=== PATIENT | male | born 1965 | race Two or more races ===

== ENCOUNTER 2017-06-21 08:30 | Emergency (ER) | payer OTHER ==
[~2017-06-21] VITALS: Ht 167.6 cm; Wt 72.6 kg
[~2017-06-21 08:30] MED LIST: ALPRAZOLAM0.25 MG ORAL; AMLODIPINE BESY10 MG PO; CLINDAMYCIN HC300 MG ORAL; DSS100 MG PO; FLOMAX0.4 MG PO; HYDRALAZINE HCL25 M1 PO; KEFLEX500 M1 GT; NKM; NORCO 5-325 TA1 EACH ORAL; ZOFRAN4 MG ORAL; ZYLOPRIM100 MG PO
[2017-06-21] MEDS ORDERED: NKM (08:40)
--- NOTE | 2017-06-21 08:40 | Emergency Room Report ---
History of Present Illness General Chief Complaint: General Complaint Source: Patient Present Illness HPI Patient complains of 3 weeks of cough, congestion, general malaise with some discomfort in his lower back and feelings of being under the weather. 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 He complains of a upper respiratory infection which seemed viral and was shared by many of his friends. That lingering cough has resolved and now he feels somewhat under the weather and is having bouts of insomnia difficulty sleeping general malaise, poor appetite and some kidney pain as described. He takes no medications, but missed it has been hurting alcohol somewhat more excessive than normal. Review of records showed generally normal labs on this patient and history of positive UA back in 2011 prior to his TURP. Patient has a history of kidney stones but CT scan and demonstrated no stones, dig and generally noticed some fatty liver and changes in the liver. Allergies: Coded Allergies: No Known Allergies (Unverified , 11/22/12) Patient History Past Medical History: see triage record, old chart reviewed, renal disease Past Surgical History: other - TURP Social History: Reports: alcohol use, smoking Immunizations: UTD Reviewed Nursing Documentation: PMH: Agreed Nursing Documentation-PMH Hx Cardiac Problems: No - kidney stones, BPH Hx Hypertension: Yes Hx Asthma: Yes Review of Systems Constitutional: Reports: chills, malaise, sweats, weakness Respiratory: Reports: cough Cardiovascular: Denies: chest pain, edema Gastrointestinal: Reports: nausea, Denies: abdominal pain, diarrhea, melena, vomiting Genitourinary: Denies: dysuria, frequency, hematuria Musculoskeletal: Denies: back pain Psychiatric: Denies: HI, SI, depressed feelings Neurological: Reports: headache, Denies: numbness, paresthesia All Other Systems: negative except mentioned in HPI Physical Exam Vital Signs Date Time Temp Pulse Resp B/P Pulse Ox O2 Delivery O2 Flow Rate FiO2 06/21/17 08:34 97.9 91 18 150/92 97 Room Air Sp02 EP Interpretation: reviewed, normal General Appearance: normal inspection, no apparent distress, alert, GCS 15 Head: atraumatic Eyes: bilateral eye normal inspection ENT: normal ENT inspection, hearing grossly normal, normal voice Neck: normal inspection, full range of motion, supple, no bony tend Respiratory: normal inspection, lungs clear, normal breath sounds, no respiratory distress, no retraction, no wheezing Cardiovascular #1: regular rate, rhythm, no edema Gastrointestinal: normal inspection, normal bowel sounds, non tender, soft, no guarding, no hernia Genitourinary: no CVA tenderness Musculoskeletal: normal inspection, back normal, normal range of motion Neurologic: normal inspection, alert, responsive, speech normal Psychiatric: normal inspection, judgement/insight normal, mood/affect normal Skin: normal inspection, normal color, no rash Medical Decision Making Diagnostic Impression: Primary Impression: Encounter for generalized patient complaints Additional Impression: Anxiety ER Course Patient is a generally healthy 51-year-old male with history of BPH. And recent URI, now complaining of back and generalized malaise. Differential could be a lingering pneumonia could be also related to kidney infection with his BPH history. Could also be working 3 jobs and stressed as well as lack of sleep. Will obtain a chest x-ray as well as urinalysis and basic labs and do IV hydration at this time. His heart rate is somewhat elevated. Will examine for any signs of hepatic injury or kidney disease as well and treat appropriately based on initial findings. Review chest x-ray as well as laboratory evaluations. Overall labs are very stable, as well as x-ray. Patient's immature without difficulties. Patient is a suffering from post viral problems. Small leuk esterase and minor hematuria is noted though I don't think this is likely an infection in his age. We'll provide copies of labs and referred to his primary doctor in recommend rest and hydration. Laboratory Tests Test 06/21/17 08:45 06/21/17 09:15 Urine Color Pale yellow Urine Appearance Slightly cloudy Urine pH 6 (4.5-8.0) Urine Specific [place] 1.015 (1.005-1.035) Urine Protein 1+ (NEGATIVE) H Urine Glucose (UA) Negative (NEGATIVE) Urine Ketones Negative (NEGATIVE) Urine Occult Blood 3+ (NEGATIVE) H Urine Nitrite Negative (NEGATIVE) Urine Bilirubin Negative (NEGATIVE) Urine Urobilinogen Normal MG/DL (0.0-1.0) Urine Leukocyte Esterase 1+ (NEGATIVE) H Urine RBC 5-10 /HPF (0 - 0) H Urine WBC 2-4 /HPF (0 - 0) Urine Squamous Epithelial Cells Few /LPF (NONE/OCC) Urine Bacteria Few /HPF (NONE) White Blood Count 6.2 K/UL (4.8-10.8) Red Blood Count 5.36 M/UL (4.70-6.10) Hemoglobin 15.6 G/DL (14.2-18.0) Hematocrit 46.3 % (42.0-52.0) Mean Corpuscular Volume 86 FL (80-99) Mean Corpuscular Hemoglobin 29.0 PG (27.0-31.0) Mean Corpuscular Hemoglobin Concent 33.6 G/DL (32.0-36.0) Red Cell Distribution Width 11.0 % (11.6-14.8) L Platelet Count 256 K/UL (150-450) Mean Platelet Volume 7.7 FL (6.5-10.1) Neutrophils (%) (Auto) 73.6 % (45.0-75.0) Lymphocytes (%) (Auto) 16.9 % (20.0-45.0) L Monocytes (%) (Auto) 6.8 % (1.0-10.0) Eosinophils (%) (Auto) 1.6 % (0.0-3.0) Basophils (%) (Auto) 1.2 % (0.0-2.0) Sodium Level 139 mEQ/L (135-145) Potassium Level 4.1 mEQ/L (3.4-4.9) Chloride Level 101 mEQ/L (98-107) Carbon Dioxide Level 25 mEQ/L (20-30) Anion Gap 13 (5-15) Blood Urea Nitrogen 11 mg/dL (7-23) Creatinine 0.9 mg/dL (0.7-1.2) Estimat Glomerular Filtration Rate > 60 mL/min (>60) Glucose Level 112 mg/dL (74-106) H Calcium Level 9.1 mg/dL (8.6-10.2) Total Bilirubin 0.7 mg/dL (0.0-1.2) Aspartate Amino Transf (AST/SGOT) 17 U/L (5-40) Alanine Aminotransferase (ALT/SGPT) 14 U/L (3-41) Alkaline Phosphatase 61 U/L (40-129) Total Protein 7.0 g/dL (6.6-8.7) Albumin 4.0 g/dL (3.5-5.2) Globulin 3.0 g/dL Albumin/Globulin Ratio 1.3 (1.0-2.7) Lipase 40 U/L (< 60) Chest X-Ray Diagnostic Results Chest X-Ray Diagnostic Results : Chest X-Ray Ordered: Yes # of Views/Limited/Complete: 1 View Indication: Other - fever chills EP Interpretation: Yes Interpretation: no consolidation, no effusion, no pneumothorax, no acute cardiopulmonary disease Impression: No acute disease Interpreting ER Provider: Electronically signed by Kemar Chung MD Reevaluation Time: 10:07 Last Vital Signs Date Time Temp Pulse Resp B/P Pulse Ox O2 Delivery O2 Flow Rate FiO2 06/21/17 08:34 97.9 91 18 150/92 97 Room Air Status: improved Disposition: HOME, SELF-CARE Condition: Stable Kemar Chung MD Jun 21, 2017 08:40
[2017-06-21 09:10] LABS: APPEARANCE,URINE SLIGHTLY CLOUDY; KETONES,URINE NEGATIVE (NEGATIVE); LEUKOCYTE ESTERASE ,URINE 1+ (NEGATIVE); NITRITE,URINE NEGATIVE (NEGATIVE); PH,URINE 6 (4.5-8.0); PROTEIN,URINE 1+ (NEGATIVE); UROBILINOGEN,URINE NORMAL MG/DL (0.0-1.0)
[2017-06-21 09:23] LABS: BACTERIA,URINE FEW /HPF; SQUAMOUS EPITHELIAL CELL,UR FEW /LPF (NONE/OCC)
[2017-06-21 09:40] LABS: BASOPHILS % (AUTO) 1.2 % (0.0-2.0); EOSINOPHILS % (AUTO) 1.6 % (0.0-3.0); LYMPHOCYTES % (AUTO) 16.9 % (20.0-45.0); MEAN CORPUSCULAR HGB CONC 33.6 G/DL (32.0-36.0); MEAN CORPUSCULAR VOLUME 86 FL (80-99); MEAN PLATELET VOLUME 7.7 FL (6.5-10.1); MONOCYTES % (AUTO) 6.8 % (1.0-10.0); NEUTROPHILS % (AUTO) 73.6 % (45.0-75.0); PLATELET COUNT 256 K/UL (150-450); RED BLOOD COUNT 5.36 M/UL (4.70-6.10); WHITE BLOOD COUNT 6.2 K/UL (4.8-10.8)
[2017-06-21 09:54] LABS: ALANINE AMINOTRANSFERASE 14 U/L (3-41); ALBUMIN/GLOBULIN RATIO 1.3 (1.0-2.7); ANION GAP 13 (5-15); ASPARTATE AMINO TRANSFERASE 17 U/L (5-40); CALCIUM 9.1 mg/dL (8.6-10.2); CARBON DIOXIDE 25 mEQ/L (20-30); CHLORIDE 101 mEQ/L (98-107); CREATININE 0.9 mg/dL (0.7-1.2); GLOMERULAR FILTRATION RATE > 60 mL/min (>60); HEMOLYSIS 13; LIPASE 40 U/L (< 60); POTASSIUM 4.1 mEQ/L (3.4-4.9); SODIUM 139 mEQ/L (135-145)
[2017-06-21 10:19] VITALS: BP 143/87
[2017-06-21 10:20] VITALS: BP 143/87
--- NOTE | 2017-06-21 11:57 | Diagnostic Imaging Report ---
Indication: Chest pain Technique: One view of the chest Comparison: 04/06/2016 Findings: Lungs and pleural spaces are clear. Heart size is normal. No significant change Impression: No acute process
== END 2017-06-21 10:27 | disposition home or self-care (01) ==
LOC: EMR 09:02
DX: R05 Cough (principal); M54.5 Low back pain; F41.9 Anxiety disorder, unspecified; R53.1 Weakness; R51 Headache; Z87.442 Personal history of urinary calculi
CPT/HCPCS: 36415; 71010; 80053; 81003; 83690; 85025; 96360

== ENCOUNTER 2017-11-09 11:00 | Emergency (ER) | payer OTHER ==
[~2017-11-09] VITALS: Ht 170.2 cm; Wt 72.6 kg
--- NOTE | 2017-11-09 12:01 | Emergency Room Report ---
History of Present Illness General Chief Complaint: Lower Extremity Injury Source: Patient Present Illness HPI 52-year-old male walks in with pain to top of right foot after bookcase accidentally fell and foot last night initially felt okay, but worsening swelling and pain to top of foot Didnt take OTC meds No ankle pain no Previous injury to right foot or ankle Allergies: Coded Allergies: No Known Allergies (Unverified , 11/22/12) Patient History Past Medical History: none Past Surgical History: none Pertinent Family History: none Social History: Denies: smoking, alcohol use, drug use Immunizations: UTD Reviewed Nursing Documentation: PMH: Agreed, PSxH: Agreed Nursing Documentation-PMH Hx Cardiac Problems: No - kidney stones, BPH Hx Hypertension: Yes Hx Asthma: Yes Review of Systems All Other Systems: negative except mentioned in HPI Physical Exam Vital Signs Date Time Temp Pulse Resp B/P (MAP) Pulse Ox O2 Delivery O2 Flow Rate FiO2 11/09/17 11:08 98.1 86 17 126/87 97 Room Air Sp02 EP Interpretation: reviewed, normal General Appearance: normal inspection, well appearing, no apparent distress, alert, GCS 15, non-toxic Head: normocephalic, atraumatic Eyes: bilateral eye PERRL, bilateral eye EOMI ENT: normal ENT inspection, hearing grossly normal, normal pharynx, no angioedema, normal voice, TMs + canals normal, uvula midline, moist mucus membranes Neck: normal inspection, full range of motion, supple, thyroid normal, no meningismus, no bony tend Respiratory: normal inspection, lungs clear, normal breath sounds, no rhonchi, no respiratory distress, no retraction, no accessory muscle use, no wheezing, speaking full sentences Cardiovascular #1: regular rate, rhythm, no edema, no JVD, normal capillary refill Gastrointestinal: normal inspection, normal bowel sounds, non tender, soft, no mass, no peritonitis, non-distended, no guarding, no hernia, no pulsatile mass Genitourinary: no CVA tenderness Musculoskeletal: normal inspection, back normal, normal range of motion, no calf tenderness, pelvis stable, Won's Sign negative, other - right foot: 2cm area of swelling to dorsum. no abrasions or lacerations. ttp over 2-4th metatarsals Neurologic: normal inspection, alert, oriented x3, responsive, berry picker III-XII nml as tested, motor strength/tone normal, cerebellar normal, normal gait, speech normal Psychiatric: normal inspection, judgement/insight normal, mood/affect normal, no suicidal/homicidal ideation, no delusions Skin: normal inspection, normal color, no rash Lymphatic: normal inspection, no adenopathy Medical Decision Making Diagnostic Impression: Primary Impression: Contusion of foot, right Qualified Codes: S90.31XA - Contusion of right foot, initial encounter ER Course ER course: Patient has remained stable during ED stay. Patient is to be discharged to home. Prescriptions given are * Patient is instructed to follow up with their primary care doctor within 5 days. Patient is instructed to follow up with *specialist within 3 days. Strict return precautions discussed with patient such as fever, chills, worsening/severe pain, nausea, vomiting, which may indicate severe illness. Patient verbalizes understanding and agrees with plan. Please note that this Emergency Department Report was dictated using [employer] technology software, occasionally this can lead to erroneous entry secondary to interpretation by the dictation equipment Other X-Ray Diagnostic Results Other X-Ray Diagnostic Results : X-Ray ordered: Right foot # of Views/Limited Vs Complete: 3 View Indication: Pain EP Interpretation: Yes Interpretation: no dislocation, no soft tissue swelling, no fractures Impression: No acute disease Electronically Signed by: Dr Belel Velarde MD Last Vital Signs Date Time Temp Pulse Resp B/P (MAP) Pulse Ox O2 Delivery O2 Flow Rate FiO2 11/09/17 11:08 98.1 86 17 126/87 97 Room Air Status: improved Disposition: HOME, SELF-CARE Referrals: NON PHYSICIAN (PCP) BELLE VELARDE M.D. Nov 09, 2017 12:01
[2017-11-09] MEDS ORDERED: IBUPROFEN600 MG ORAL (12:02)
[2017-11-09 12:21] VITALS: BP 126/87
--- NOTE | 2017-11-10 05:01 | Diagnostic Imaging Report ---
Indication: Foot pain Technique: 3 views right foot Comparison: none Findings: There is marked degenerative change of the first metacarpophalangeal joint. There is degenerative remodeling of both sides of the joint. No acute fractures. No dislocations. The remaining joint spaces are preserved. There is pes cavus deformity. There may be dorsal soft tissue swelling Impression: No acute bony trauma Degenerative changes. This agrees with the preliminary interpretation provided by the emergency room physician
== END 2017-11-09 12:23 | disposition home or self-care (01) ==
LOC: EMR 11:45
DX: S90.31XA Contusion of right foot, initial encounter (principal); W20.8XXA Other cause of strike by thrown, projected or falling object, initial encounter; Y92.89 Other specified places as the place of occurrence of the external cause; I10 Essential (primary) hypertension; J45.909 Unspecified asthma, uncomplicated
CPT/HCPCS: 99283

== ENCOUNTER 2017-11-24 11:59 | Emergency (ER) | payer OTHER ==
[~2017-11-24] VITALS: Ht 167.6 cm; Wt 77.1 kg
[~2017-11-24 11:59] MED LIST changes: +IBUPROFEN600 MG ORAL
--- NOTE | 2017-11-24 13:21 | Emergency Room Report ---
History of Present Illness General Chief Complaint: Skin Rash/Abscess Source: Patient, Medical Record Present Illness HPI 52-year-old male presents to the emergency department complaining of 5/10 in severity pain, swelling and erythema x2 weeks status post bookcase falling on his right foot. Patient was seen by his primary care physician and placed on doxycycline and after no improvement his PCP referred him to the emergency department for possible drainage. he denies fevers, chills, progressive erythema or increased temperature palpation. Patient states that he has been having a difficult time not using his leg and admits to not keeping it elevated as much as he should. He denies new trauma or fall. He reports bruises have improved. reports previously negative foot xray. Denies numbness tingling or loss of sensation or gross motor movements of the extremities, incontinence of bowel or bladder. Denies CP, Palpitations, LOC, AMS, dizziness, Changes in Vision, Sensation, paresthesias, or a sudden severe headache. Allergies: Coded Allergies: No Known Allergies (Unverified , 11/22/12) Patient History Past Medical History: see triage record Past Surgical History: none Pertinent Family History: none Reviewed Nursing Documentation: PMH: Agreed, PSxH: Agreed Nursing Documentation-PMH Past Medical History: No History, Except For Hx Cardiac Problems: No - kidney stones, BPH Hx Hypertension: Yes Hx Asthma: Yes Review of Systems All Other Systems: negative except mentioned in HPI Physical Exam Vital Signs Date Time Temp Pulse Resp B/P (MAP) Pulse Ox O2 Delivery O2 Flow Rate FiO2 11/24/17 12:17 97.9 71 18 138/86 97 Room Air Sp02 EP Interpretation: reviewed, normal General Appearance: no apparent distress, alert, GCS 15, non-toxic Head: normocephalic, atraumatic ENT: hearing grossly normal, normal voice Respiratory: lungs clear, normal breath sounds, speaking full sentences Cardiovascular #1: regular rate, rhythm, normal capillary refill Cardiovascular #2: 2+ dorsalis pedis (R), 2+ dorsalis pedis (L) Musculoskeletal: back normal, normal range of motion, swelling - dorsal right foot, localized, tender - dorsal right foot, ST swelling noted with bruising. Neurologic: alert, oriented x3, responsive, motor strength/tone normal, sensory intact, speech normal Skin: no rash, warm/dry, well hydrated, other - moderate bruising in various stages of healing to the Right foot and ankle. Procedures Incision and Drainage Incision and Drainage : Consent: Verbal Site: dorsal right foot Blade Size: 18g needle with syringe I & D Procedure: betadine prep, sterile drapes applied, sterile dressing applied Wound Location: lower extremity - dorsal right foot Wound's Depth, Shape: into muscle Wound Length (cm): 0 Wound Explored: Needle aspiration - no return of purulent or sanguinous fluids. Anesthesia: 1% Lidocaine Volume Anesthetic (ccs): 2 Splint Applied?: No Sling Applied?: No Patient Tolerated: Well Complications: None Medical Decision Making PA Attestation Dr. Caballero is my supervising Physician whom patient management has been discussed with. Diagnostic Impression: Primary Impression: Foot swelling ER Course 52-year-old male presents to the emergency department complaining of 5/10 in severity pain, swelling and erythema x2 weeks status post bookcase falling on his right foot. Patient was seen by his primary care physician and placed on doxycycline and after no improvement his PCP referred him to the emergency department for possible drainage. he denies fevers, chills, progressive erythema or increased temperature palpation. Patient states that he has been having a difficult time not using his leg and admits to not keeping it elevated as much as he should. He denies new trauma or fall. He reports bruises have improved. reports previously negative foot xray. Denies numbness tingling or loss of sensation or gross motor movements of the extremities, incontinence of bowel or bladder. Denies CP, Palpitations, LOC, AMS, dizziness, Changes in Vision, Sensation, paresthesias, or a sudden severe headache. -reports tetanus is UTD. Ddx considered but are not limited to cellulitis, abscess, cystic acne, necrotizing fasciitis, insect bite just to name a few. Vital signs: are WNL, pt. is afebrile H&PE are most consistent with soft tissue swelling s/p trauma. ORDERS: none required at this time, the diagnosis is clinical ED INTERVENTIONS: -Needle aspiration - no return of purulent or sanguinous fluids. DISCHARGE: At this time pt. is stable for d/c to home. Will provide printed patient care instructions, and any necessary prescriptions. Care plan and follow up instructions have been discussed with the patient prior to discharge. Last Vital Signs Date Time Temp Pulse Resp B/P (MAP) Pulse Ox O2 Delivery O2 Flow Rate FiO2 11/24/17 12:17 97.9 71 18 138/86 97 Room Air Disposition: HOME, SELF-CARE Condition: Stable Scripts Naproxen* (NAPROXEN*) 500 Mg Tablet 500 MG ORAL TWICE A WEEK, #20 TAB 0 Refills Prov: Madina Bonilla 11/24/17 Patient Instructions: Medical Screening Exam Additional Instructions: Take medications as directed. Follow up with an [facility] in 3-5 days, even if your symptoms have resolved. --Please review list of primary care clinics, if you do not already have a primary care provider Return sooner to ED if new symptoms occur, or current symptoms become worse. - Please note that this Emergency Department Report was dictated using [employer] java developer technology software, occasionally this can lead to erroneous entry secondary to interpretation by the dictation equipment. Madina Bonilla Nov 24, 2017 13:21
[2017-11-24] MEDS ORDERED: NAPROXEN500 M2 ORAL (14:00)
[2017-11-24 14:20] VITALS: BP 144/71
== END 2017-11-24 14:23 | disposition home or self-care (01) ==
LOC: EMR 12:50
DX: M79.89 Other specified soft tissue disorders (principal); S90.31XA Contusion of right foot, initial encounter; W22.8XXA Striking against or struck by other objects, initial encounter; Y92.89 Other specified places as the place of occurrence of the external cause; I10 Essential (primary) hypertension; J45.909 Unspecified asthma, uncomplicated
CPT/HCPCS: 10060; 99283

== ENCOUNTER 2018-08-09 12:30 | Emergency (ER) | payer OTHER ==
[~2018-08-09] VITALS: Ht 172.7 cm; Wt 79.4 kg
[~2018-08-09 12:30] MED LIST changes: +NAPROXEN500 M2 ORAL
--- NOTE | 2018-08-09 13:02 | Emergency Room Report ---
History of Present Illness General Chief Complaint: Chest Pain Source: Patient Present Illness HPI This patient has multiple nonspecific complaints which revolve around too much work and too much stress and not enough sleep. He does NOT have chest pain specifically. He describes fleeting (1-2 seconds) sharp, tingling sometimes in mid-chest, also sometimes tingling in arm and sometime testicular pain. He has normal: bm, urine, eating po. No fever. No chest pain, no abd pain, no headache , no neck pain, no LOC, no visual complaint. No sob. Pt. is active rides bike, works three jobs. Has PMD general check up appt. in two days. No PMH. Allergies: Coded Allergies: No Known Allergies (Unverified , 11/22/12) Nursing Documentation-PMH Hx Cardiac Problems: No - kidney stones, BPH Hx Hypertension: Yes Hx Asthma: Yes Review of Systems Constitutional: Reports: see HPI Eye: Reports: no symptoms ENT: Reports: no symptoms Respiratory: Reports: no symptoms Cardiovascular: Reports: no symptoms Gastrointestinal: Reports: no symptoms Genitourinary: Reports: no symptoms Musculoskeletal: Reports: no symptoms Skin: Reports: no symptoms Psychiatric: Reports: no symptoms Neurological: Reports: no symptoms Endocrine: Reports: no symptoms Hematologic/Lymphatic: Reports: no symptoms Allergic: Reports: no symptoms All Other Systems: negative except mentioned in HPI Physical Exam Vital Signs Date Time Temp Pulse Resp B/P (MAP) Pulse Ox O2 Delivery O2 Flow Rate FiO2 08/09/18 12:35 98.2 86 18 151/79 95 Room Air 98.2 Sp02 EP Interpretation: reviewed, normal General Appearance: normal inspection, well appearing, no apparent distress, alert, GCS 15, non-toxic Head: normocephalic, atraumatic Eyes: bilateral eye normal inspection, bilateral eye PERRL, bilateral eye EOMI ENT: normal ENT inspection, hearing grossly normal, normal pharynx, no angioedema, normal voice, moist mucus membranes Neck: normal inspection, full range of motion, supple, no meningismus, no bony tend Respiratory: normal inspection, lungs clear, normal breath sounds, no rhonchi, no respiratory distress, no retraction, no accessory muscle use, no wheezing Cardiovascular #1: normal inspection, regular rate, rhythm, no edema Gastrointestinal: normal inspection, normal bowel sounds, non tender, soft, no mass, non-distended Musculoskeletal: gait/station normal, normal range of motion Neurologic: normal inspection, alert, oriented x3, responsive, motor strength/ tone normal Psychiatric: normal inspection, judgement/insight normal, memory normal Suicide Risk Assessment: Suicidal Ideation: No Had intent to initiate attempt: No Pt's plan for suicide attempt: No Has means to complete attempt: No Skin: normal inspection, normal color, no rash, warm/dry Medical Decision Making Diagnostic Impression: Primary Impression: Chest pain EKG Diagnostic Results EKG Time: 13:01 Rate: normal Rhythm: NSR ST Segments: no acute changes Rhythm Strip Diag. Results Rhythm Strip Time: 13:01 EP Interpretation: yes Rate: 73 Rhythm: NSR Last Vital Signs Date Time Temp Pulse Resp B/P (MAP) Pulse Ox O2 Delivery O2 Flow Rate FiO2 08/09/18 12:55 80 19 Room Air 08/09/18 12:35 98.2 151/79 95 98.2 Status: improved Disposition: HOME, SELF-CARE Patient Instructions: Nonspecific Chest Pain Tono Rodriguez M.D. Aug 09, 2018 13:02
[2018-08-09 13:22] VITALS: BP 129/75
[2018-08-09 13:23] VITALS: BP 129/75
== END 2018-08-09 13:23 | disposition home or self-care (01) ==
LOC: EMR 13:08
DX: R07.9 Chest pain, unspecified (principal); I10 Essential (primary) hypertension; J45.909 Unspecified asthma, uncomplicated
CPT/HCPCS: 99283